=== PATIENT | female | born 1985 | race Hispanic/Latino ===

== ENCOUNTER 2018-10-16 15:57 | Observation (INO) | payer MEDICAID ==
[~2018-10-16] VITALS: Ht 165.1 cm; Wt 87.5 kg
[2018-10-16] MEDS: LACTATED RINGERS 1000ML 1,000 ML IV SCH ×3 (17:20→20:55)
[2018-10-16 18:56] LABS: APPEARANCE,URINE Cloudy (CLEAR); BILIRUBIN,URINE Moderate (NEGATIVE); GLUCOSE, URINE (UA) 500 mg/dL (NEGATIVE); KETONES,URINE >=80 mg/dL (NEGATIVE); LEUKOCYTE ESTERASE ,URINE Small (NEGATIVE); NITRATE,URINE Positive (NEGATIVE); OCCULT BLOOD,URINE Negative (NEGATIVE); PROTEIN,URINE POS 1+ mg/dL (NEGATIVE)
[2018-10-16 18:57] LABS: COLOR,URINE Dark Yellow (YELLOW)
[2018-10-16 19:38] LABS: BACTERIA,URINE Few /HPF (None Seen); RBC,URINE None Seen /HPF (0-1)
[2018-10-16] MEDS ORDERED: CEFTRIAXONE SODIUM 1 GM IVP SCH (20:00)
[2018-10-16] MEDS ORDERED: CEFTRIAXONE SODIUM 1 GM ONE (20:03)
[2018-10-16] MEDS ORDERED: INSULIN HUMULIN R 100 UNIT/ML 3ML SQ SCH (21:00)
[2018-10-17] MEDS: LACTATED RINGERS 1000ML 1,000 ML IV SCH (04:02)
== END 2018-10-17 09:15 | disposition home or self-care (01) ==
LOC: LDH 15:57
PROVIDERS: ADMIT Obstetrics & Gynecology; ATTEND Obstetrics & Gynecology
DX: O24.419 Gestational diabetes mellitus in pregnancy, unspecified control (principal); Z3A.34 34 weeks gestation of pregnancy; Z79.899 Other long term (current) drug therapy
CPT/HCPCS: 81001; 82948 ×4; 87088; 96374; G0378 ×18; J0696; J7120 ×3; 96360; 96361

== ENCOUNTER 2018-10-21 16:52 | Observation (INO) | payer MEDICAID ==
[~2018-10-21] VITALS: Ht 165.1 cm; Wt 90.7 kg
[2018-10-21 17:36] LABS: APPEARANCE,URINE CLEAR (CLEAR); BILIRUBIN,URINE MODERATE (NEGATIVE); COLOR,URINE YELLOW (YELLOW); GLUCOSE, URINE (UA) 100 mg/dL (NEGATIVE); KETONES,URINE 15 mg/dL (NEGATIVE); LEUKOCYTE ESTERASE ,URINE NEGATIVE (NEGATIVE); NITRATE,URINE NEGATIVE (NEGATIVE); OCCULT BLOOD,URINE NEGATIVE (NEGATIVE); PH,URINE 6.5 (5.0-8.0); PROTEIN,URINE 30 mg/dL (NEGATIVE)
[2018-10-21 17:42] LABS: BACTERIA,URINE Few /HPF (None Seen); MUCUS,URINE Few LPF (None Seen)
[2018-10-21 19:32] VITALS: BP 124/76
[2018-10-26] MEDS ORDERED: INSU100C14 SQ (20:01)
[2018-10-26] MEDS ORDERED: INSLAN SQ (20:01)
== END 2018-10-21 21:30 | disposition home or self-care (01) ==
LOC: LDH 16:52
PROVIDERS: ADMIT Obstetrics & Gynecology; ATTEND Obstetrics & Gynecology
DX: Z34.90 Encounter for supervision of normal pregnancy, unspecified, unspecified trimester (principal); Z3A.00 Weeks of gestation of pregnancy not specified
CPT/HCPCS: 81001; G0378 ×5; 96360